=== PATIENT | female | born 1990 | race Two or more races ===

== ENCOUNTER 2019-03-06 23:54 | Emergency (ER) | payer MEDICAID ==
[~2019-03-06] VITALS: Ht 162.6 cm; Wt 56.7 kg
[2019-03-07 00:38] LABS: Basophils # (auto) 0.1 uL; Basophils % (auto) 0.9 % (0.0-2.0); Eosinophils # (auto) 0.3 uL; Hematocrit 32.7 % (36.0-46.0); Hemoglobin 10.8 g/dL (12.2-16.2); Lymphocytes % (auto) 22.3 % (10.0-50.0); Mean Corpuscular Hemoglobin 30.7 pg (28.0-32.0); Mean Corpuscular Volume 93.1 fL (80.0-100.0); Monocytes # (auto) 0.5 uL; Monocytes % (auto) 5.4 % (0.0-12.0); Neutrophils # (auto) 6.1 uL; Neutrophils % (auto) 68.4 % (37.0-80.0); Platelet Count (auto) 469 10^3/uL (140-450); Red Blood Cells 3.51 10^6/uL (4.0-5.20); Red Cell Distribution Width 13.4 % (11.8-14.3); White Blood Cell 8.9 10^3/uL (4.4-10.8)
[2019-03-07 00:54] LABS: Albumin 2.6 g/dL (3.4-5.0); Calcium 8.3 mg/dL (8.5-10.1); INR 0.99 (0.9-1.15); Partial Thromboplastin Time 28.7 sec (23.64-32.05); Potassium 4.2 mmol/L (3.5-5.1)
[2019-03-07 00:54] LABS: Urine Bacteria MOD /hpf (None Seen); Urine Blood 2+ /uL (Negative); Urine Hyaline Cast MOD /lpf (0 - 2); Urine Mucus FEW (None Seen); Urine Specific Gravity 1.014 (1.001-1.035); Urine WBC 7 /hpf (0 - 5)
[2019-03-07 00:57] LABS: BUN/Creatinine Ratio 15.5
[2019-03-07 01:05] LABS: Bilirubin, Total 0.1 mg/dL (0.2-1.0); Total Protein 6.9 g/dL (6.4-8.2)
[2019-03-07 05:00] VITALS: BP 120/80
== END 2019-03-07 05:53 | disposition home or self-care (01) ==
LOC: ER 03-07 00:01
DX: R53.1 Weakness (principal); N17.9 Acute kidney failure, unspecified; N39.0 Urinary tract infection, site not specified
CPT/HCPCS: 36415; 71046; 74176; 80053; 81001; 81025; 83880; 85025; 85610; 85730; 93005